=== PATIENT | male | born 1960 | race Caucasian/White ===

== ENCOUNTER 2024-09-05 09:21 | Day surgery (SDC) | payer SELFPAY ==
[2024-09-05] MEDS ORDERED: CEFAZOLIN 2 G in IV DEXTROSE 5% 100 ML IV ONE (09:30)
[2024-09-05] MEDS ORDERED: PROPOFOL 200 MG/20 ML BOTTLE ONE (09:35)
[2024-09-05] MEDS ORDERED: BUPIVACAINE/EPI PF 0.25% 10 ML VIAL IJ ONE ×2 (09:45→11:06)
[2024-09-05] MEDS ORDERED: MIDAZOLAM HCL 2 MG/2 ML VIAL ONE (10:06)
[2024-09-05] MEDS ORDERED: FENTANYL CITRATE 100 MCG/2 ML AMPUL ONE (10:06)
[2024-09-05 10:43] LABS: *BILIRUBIN,URIN NEGATIVE (NEGATIVE); *CLARITY,URINE CLEAR (CLEAR); *COLOR,URINE YELLOW (YELLOW); *KETONES,URINE NEGATIVE (NEGATIVE); *PROTEIN,URINE TRACE (NEGATIVE); *UROBILINOGEN,URINE 0.2 E.U./dl (NORMAL); LEUKOCYTE ESTERASE ,URINE NEGATIVE (NEGATIVE); NITRITE, URINE NEGATIVE (NEGATIVE); PH,URINE 5.5 (5.0-8.0); UGLUCOSE NEGATIVE (NEGATIVE)
[2024-09-05 10:46] LABS: *BLOOD, URINE TRACE (NEGATIVE)
[2024-09-05 10:55] LABS: BACTERIA,URINE FEW /HPF (NONE SEEN); RBC,URINE 0-3 /HPF (0-3); SQUAMOUS EPITHELIAL CELL,UR FEW /HPF (NONE SEEN); WBC,URINE 0-3 /HPF (0-3)
[2024-09-05] MEDS ORDERED: LIDOCAINE HCL 1% 20 ML VIAL ONE (11:10)
[2024-09-05] MEDS ORDERED: FENTANYL CITRATE 100 MCG/2 ML AMPUL IV PRN (12:45)
[2024-09-05] MEDS ORDERED: HYDROMORPHONE 1 MG/1 ML DISP.SYRIN IV PRN (12:45)
[2024-09-05] MEDS ORDERED: GABAPENTIN 300 MG CAPSULE ONE (13:34)
[2024-09-05] MEDS ORDERED: ACETAMINOPHEN 500 MG TABLET ONE (13:35)
[2024-09-05] MEDS: GABAPENTIN 300 MG CAPSULE PO ONE (13:36)
[2024-09-05] MEDS: ACETAMINOPHEN 500 MG TABLET PO ONE (13:38)
[2024-09-05 14:05] VITALS: TEMP 96.7
== END 2024-09-05 14:30 | disposition home or self-care (01) ==
LOC: DS 09:21
PROVIDERS: ATTEND Surgery
DX: K40.90 Unilateral inguinal hernia, without obstruction or gangrene, not specified as recurrent (principal); I48.91 Unspecified atrial fibrillation; Z79.899 Other long term (current) drug therapy; Z98.890 Other specified postprocedural states; Z88.8 Allergy status to other drugs, medicaments and biological substances
CPT/HCPCS: 49505; 64425; 81001; C1781; J0330; J0690; J1100; J1885; J2250; J2405; J3010; J3490; J7120; A4649; A4663; A9150